=== PATIENT | female | born 1930 | race Two or more races ===

== ENCOUNTER 2019-07-06 05:56 | Day surgery (SDC) | payer OTHER ==
[~2019-07-06 05:56] MED LIST: ALTACE5 MG PO; METROPOLOL PO; SYNTHROID50 MCG PO; SYNTHROID75 MCG PO; VENLAFAXINE H37.5 MG PO; XARELTO15 MG PO; ZOCOR20 MG PO
[2019-07-06] MEDS ORDERED: RECTICARE30 GM TOP (08:51)
[2019-07-06] MEDS ORDERED: ULTRACET PO (08:51)
== END 2019-07-06 17:15 | disposition home or self-care (01) ==
LOC: CIR.AMB 05:56
DX: K64.2 Third degree hemorrhoids (principal); K62.5 Hemorrhage of anus and rectum; K59.09 Other constipation; K62.89 Other specified diseases of anus and rectum